=== PATIENT | female | born 1980 | race Caucasian/White ===

== ENCOUNTER → 2022-02-04 | Outpatient (CLI) | payer OTHER ==
[~2022-02-04] MED LIST: ELAVIL 25 MG TA25 MG PO; EXCEDRIN MIGRA1 EACH PO; IMITREX100 MG PO; PROZAC20 MG PO; SHAROBEL0.35 MG PO; TOPAMAX100 MG PO; VITAMIN D32000 UNI1 PO; WELLBUTRIN XL300 M1 PO
== END ==
LOC: KOH-I 10:00
DX: M79.672 Pain in left foot (principal)
CPT/HCPCS: 73630